=== PATIENT | female | born 1970 | race Caucasian/White ===

== ENCOUNTER 2018-05-02 19:24 | Emergency (ER) | payer BC ==
[2018-05-02 19:45] VITALS: RESP 16; TEMP 98.4
--- NOTE | 2018-05-02 21:32 | ED PDOC ---
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 Patient states that approximately x1 week ago she was trying to stop herself from falling down the stairs when she twisted toward her left side at which time she developed left sided rib pain. Patient reports she has been taking Ibuprofen intermittently but the pain persists; her last dose was x2 days ago. She denies hematuria, dysuria, fever, chills, cough. Patient further denies HTN, kidney stones, HLD, and diabetes. She came to the ED today given persistence of symptoms for further evaluation. Past Medical History Reviewed: Historical Data, Nursing Documentation, Vital Signs Vital Signs: Last Vital Signs Temp 98.4 F 05/02/18 19:39 Pulse 109 H 05/02/18 19:39 Resp 16 05/02/18 19:39 BP 165/98 H 05/02/18 19:39 Pulse Ox 96 05/02/18 19:39 - Medical History PMH: Denies: Anxiety, Chronic Kidney Disease, Sexually Transmitted Disease Other PMH: ITP - Surgical History Surgical History: Appendectomy - Family History Family History: States: Unknown Family Hx - Social History Current smoker - smoking cessation education provided: No Ex-Smoker (has not smoked in the last 12 months): No Alcohol: None Drugs: Denies - Home Medications Home Medications: Ambulatory Orders Medication Instructions Recorded RX: Ferrous Sulfate 325 mg PO DAILY 01/19/14 RX: Prednisone 50 mg HHN DAILY 01/19/14 Lidocaine 5% [Lidoderm] 1 ea TD DAILY 5 Days patch 05/02/18 - Allergies Allergies/Adverse Reactions: Allergies Allergy/AdvReac Type Severity Reaction Status Date / Time No Known Allergies Allergy Verified 05/02/18 19:39 Review of Systems ROS Statement: Except As Marked, All Systems Reviewed And Found Negative Constitutional: Negative for: Fever, Chills Cardiovascular: Positive for: Chest Pain Respiratory: Negative for: Cough Genitourinary Female: Negative for: Dysuria, Hematuria Physical Exam - Reviewed Nursing Documentation Reviewed: Yes Vital Signs Reviewed: Yes - Physical Exam Appears: Positive for: No Acute Distress Neck: Positive for: Painless ROM Cardiovascular/Chest: Positive for: Other (no ecchymosis, erythema, edema, or deformity; reproducibility of pain with left abduction of back). Negative for: Chest Non Tender (mild pain on palpation of left lateral rib cage) Respiratory: Positive for: Normal Breath Sounds. Negative for: Respiratory Distress Gastrointestinal/Abdominal: Positive for: Normal Exam, Soft. Negative for: Tenderness, Guarding, Rebound Neurologic/Psych: Positive for: Alert, Oriented. Negative for: Motor/Sensory Deficits - ECG O2 Sat by Pulse Oximetry: 96 (RA) Pulse Ox Interpretation: Normal Medical Decision Making Medical Decision Making: Time: 20:58 Initial Impression: left sided rib pain Initial Plan: * RAD - ribs bilateral w/ PA lateral chest * Urine dip * Ibuprofen 600 mg PO Rib/chest X-ray: no acute pulmonary disease, no rib fracture noted. Pt states improvement in pain after Ibuprofen. Lidoderm patch prescribed for pain. Return instructions given. Scribe Attestation: Documented by Yoni Bruce, acting as a scribe for Juanita Mart PA-C. Provider Scribe Attestation: All medical record entries made by the Scribe were at my direction and personally dictated by me. I have reviewed the chart and agree that the record accurately reflects my personal performance of the history, physical exam, medical decision making, and the department course for this patient. I have also personally directed, reviewed, and agree with the discharge instructions and disposition. Disposition - Clinical Impression Clinical Impression: Rib pain, Musculoskeletal chest pain - Patient ED Disposition Is Patient to be Admitted: No Counseled Patient/Family Regarding: Studies Performed, Diagnosis, Need For Followup, Rx Given - Disposition Referrals: Kerwin Blood MD [Staff Provider] - Disposition: Routine/Home Disposition Time: 22:37 Condition: STABLE Additional Instructions: Return to ER if you develop spontaneous bruising or worsening pain despite medication use. Use Lidoderm patch 12hrs on 12hrs off for the next week. Ibuprofen for pain. Prescriptions: Lidocaine 5% [Lidoderm] 1 ea TD DAILY 5 Days patch Instructions: Costochondritis (DC) Forms: [facility] (Upper Sorbian) Print Language: MOHAWK
[2018-05-02 21:47] VITALS: PULSE 86
[2018-05-02 22:39] VITALS: O2SAT 96
[2018-05-02 22:42] VITALS: BP 132/100
--- NOTE | 2018-05-03 11:08 | RAD ---
Date of service: 05/02/2018 PROCEDURE: Radiographs of the Chest and Left Ribs. HISTORY: Left sided rib/chest pain COMPARISON: None available. TECHNIQUE: Frontal radiograph of the chest and multiple oblique radiographs of the left ribs were obtained. FINDINGS: LEFT RIBS: No fracture or focal lesion visualized. LUNGS: Clear. PLEURA: No pneumothorax or pleural fluid. CARDIOVASCULAR: Normal cardiac size. No pulmonary vascular congestion. No aortic atherosclerotic calcification present OTHER FINDINGS: None. IMPRESSION: Unremarkable radiographs of the chest and left ribs. No left rib fracture.
== END 2018-05-02 22:41 | disposition home or self-care (01) ==
LOC: H.ER 19:24
DX: R07.89 Other chest pain (principal); R07.9 Chest pain, unspecified; Z87.891 Personal history of nicotine dependence; W10.9XXA Fall (on) (from) unspecified stairs and steps, initial encounter

== ENCOUNTER 2018-05-29 16:20 | Emergency (ER) | payer BC ==
[2018-05-29] MEDS ORDERED: Sodium Chloride 0.9% 1,000 ML IV STA (16:44)
--- NOTE | 2018-05-29 16:48 | ED PDOC ---
HPI: General Adult Time Seen by Provider: 05/29/18 16:45 Chief Complaint (Nursing): Dizziness/Lightheaded Chief Complaint (Provider): dizziness History Per: Patient (48 y/o female h/o ITP on daily prednisone 20 mg here with room spinning and vomiting today. States symptoms occur in waves. Notes recent sinus infection treated with antibiotics and has had sensation of 'fullness in ears.'. Denies any fevers/chills. [employer]ER: [phone]) Past Medical History Reviewed: Historical Data, Nursing Documentation, Vital Signs Vital Signs: Last Vital Signs Temp 97.8 F 05/29/18 16:32 Pulse 89 05/29/18 16:32 Resp 18 05/29/18 16:32 BP 122/76 05/29/18 16:32 Pulse Ox 99 05/29/18 16:32 - Medical History PMH: Anemia Denies: Anxiety, Chronic Kidney Disease, Sexually Transmitted Disease - Surgical History Surgical History: Appendectomy - Family History Family History: States: Unknown Family Hx - Home Medications Home Medications: Ambulatory Orders Medication Instructions Recorded Ferrous Sulfate 325 mg PO DAILY 01/19/14 Prednisone 50 mg HHN DAILY 01/19/14 Lidocaine 5% [Lidoderm] 1 ea TD DAILY 5 Days patch 05/02/18 Meclizine [Antivert] 1 - 2 tab PO Q6 PRN #24 tab 05/29/18 Ondansetron ODT [Zofran ODT] 4 mg PO Q8 PRN #8 odt 05/29/18 Prednisone [Deltasone] 3 tab PO DAILY #21 tablet 05/29/18 - Allergies Allergies/Adverse Reactions: Allergies Allergy/AdvReac Type Severity Reaction Status Date / Time No Known Allergies Allergy Verified 05/29/18 16:32 Review of Systems ROS Statement: Except As Marked, All Systems Reviewed And Found Negative ENT: Positive for: Nose Congestion Physical Exam - Reviewed Nursing Documentation Reviewed: Yes Vital Signs Reviewed: Yes - Physical Exam Appears: Positive for: Well, Non-toxic, No Acute Distress Head Exam: Positive for: ATRAUMATIC, NORMAL INSPECTION, NORMOCEPHALIC Skin: Positive for: Normal Color, Warm, DRY Eye Exam: Positive for: EOMI, Normal appearance, PERRL ENT: Positive for: TM Is/Are (Effusion noted left TM with air-fluid. No erythema). Negative for: Normal ENT Inspection Neck: Positive for: Normal, Painless ROM Cardiovascular/Chest: Positive for: Regular Rate, Rhythm Respiratory: Positive for: CNT, Normal Breath Sounds Gastrointestinal/Abdominal: Positive for: Normal Exam, Soft Back: Positive for: Normal Inspection Extremity: Positive for: Normal ROM Neurologic/Psych: Positive for: Alert, Oriented - Laboratory Results Result Diagrams: 05/29/18 17:38 05/29/18 17:38 - ECG ECG Rhythm: Positive for: Sinus Rhythm (NSR 90BPM; NO ECTOPY NO ACUTE CHANGES) O2 Sat by Pulse Oximetry: 99 - Progress ED Course And Treament: NS 1 LITER WIDE OPEN REGLAN 10 MG IV X 1 DOSE WITH IMPROVEMENT OF SYMPTOMS. ANTIVERT 25 MG X 1 DOSE PLATELETS NOTED LOW. PATIENT STATES SHE HAS RECENTLY BEEN REDUCED OFF PREDNISONE AND WAS NOTED TO HAVE LOW PLATELETS ON FRIDAY. IS CURRENTLY ON PREDNISONE 20 MG DAILY. 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 PATIENT NEEDS TO F/U WITH HEMATOLOGY Friday. Disposition - Clinical Impression Clinical Impression: Vertigo, Thrombocytopenia - Patient ED Disposition Is Patient to be Admitted: No - Disposition Disposition: Routine/Home Disposition Time: 19:15 Condition: FAIR Prescriptions: Meclizine [Antivert] 1 - 2 tab PO Q6 PRN #24 tab PRN Reason: Dizziness Ondansetron ODT [Zofran ODT] 4 mg PO Q8 PRN #8 odt PRN Reason: Nausea/Vomiting Prednisone [Deltasone] 3 tab PO DAILY #21 tablet Instructions: Vertigo (a Type of Dizziness) (DC) Forms: [facility] ED School/Work Excuse
[2018-05-29 17:43] LABS: BASO # 0.1 K/uL (0.0-0.2); BASO % 0.7 % (0.0-2.0); EOS # 0.3 K/uL (0.0-0.7); EOS % 1.7 % (0.0-4.0); LYMPH % 18.1 % (20.0-40.0); MEAN CELL VOLUME 82.9 fl (81.0-99.0); MEAN CORPUSCULAR HEMOGLOBIN 27.4 pg (27.0-31.0); MEAN PLATELET VOLUME 11.1 fl (7.2-11.7); MONO # 1.2 K/uL (0.0-0.8); MONO % 7.3 % (0.0-10.0); NEUT # 11.9 K/uL (1.8-7.0); NEUT % 72.2 % (50.0-75.0); NRBC % 0.2 % (0.0-0.0); RBC 5.1 Mil/uL (3.80-5.20); RED CELL DISTRIBUTION WIDTH 14.1 % (11.5-14.5); WHITE BLOOD COUNT 16.5 K/uL (4.8-10.8)
[2018-05-29 18:09] LABS: ALB/GLOB RATIO 1.6 (1.0-2.1); ALBUMIN 4.4 g/dL (3.5-5.0); ALT/SGPT 28 U/L (9-52); AST/SGOT 19 U/L (14-36); BLOOD UREA NITROGEN 14 mg/dl (7-17); CALCIUM 9.5 mg/dL (8.4-10.2); GFR NON-AFRICAN AMERICAN > 60
--- NOTE | 2018-05-29 18:28 | CT ---
Date of service: 05/29/2018 PROCEDURE: CT HEAD WITHOUT CONTRAST. HISTORY: vertigo COMPARISON: None available TECHNIQUE: Axial computed tomography images were obtained through the head/brain without intravenous contrast. Radiation dose: Total exam DLP = 848.03 mGy-cm. This CT exam was performed using one or more of the following dose reduction techniques: Automated exposure control, adjustment of the mA and/or kV according to patient size, and/or use of iterative reconstruction technique. FINDINGS: HEMORRHAGE: No intracranial hemorrhage. BRAIN: No mass effect or edema. The jacobs-white matter differentiation appears intact. Please note that MRI with diffusion imaging is more sensitive in the detection of acute ischemic event. VENTRICLES: No hydrocephalus. CALVARIUM: Unremarkable. PARANASAL SINUSES: Unremarkable as visualized. No significant inflammatory changes. MASTOID AIR CELLS: Unremarkable as visualized. No inflammatory changes. OTHER FINDINGS: None. IMPRESSION: No acute intracranial pathology identified.
[2018-05-29 19:10] VITALS: BP 113/73; PULSE 88; RESP 16; TEMP 98.3
[2018-05-29 19:16] VITALS: O2SAT 99
--- NOTE | 2018-05-30 23:15 | CARD ---
APPROVED REPORT Date of service: 05/29/2018 EKG Measurement Heart [id number] <Conclusion> Normal sinus rhythm Moderate voltage criteria for LVH, may be normal variant Borderline ECG
== END 2018-05-29 20:14 | disposition home or self-care (01) ==
LOC: H.ER 16:20
DX: R42 Dizziness and giddiness (principal); D69.3 Immune thrombocytopenic purpura; Z79.52 Long term (current) use of systemic steroids
CPT/HCPCS: 70450; 80053; 81025; 84484; 85025; 93005; 96361; 96374; 96375; 99285; J2765; J7030